=== PATIENT | female | born 2000 | race African-American/Black ===

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

== ENCOUNTER 2019-06-05 07:42 | Emergency (ER) | payer OTHER, SELFPAY | END 2019-06-05 08:11 | disposition left against medical advice (07) | LOC: ERS 07:42 → T4-A 06-06 17:43 → UNDOADMIN 06-06 17:43 → ERHOLD 06-06 18:03 → T4-A 06-06 18:03 | DX: Z53.21 Procedure and treatment not carried out due to patient leaving prior to being seen by health care provider (principal) ==